=== PATIENT | male | born 1980 | race Caucasian/White ===

== ENCOUNTER 2017-01-21 23:33 | Emergency (ER) | payer OTHER ==
[2017-01-22 01:53] LABS: HEMOGLOBIN 12.8 gm/dl (14.0-17.5); RED BLOOD COUNT 4.28 M/UL (4.20-5.50); WHITE BLOOD COUNT 9.4 K/UL (4.5-11.0)
[2017-01-22 02:12] LABS: BUN/CREATININE RATIO 23 (0-10)
== END 2017-01-22 03:10 | disposition home or self-care (01) ==
LOC: ER1 23:33
PROVIDERS: Physician Assistant
DX: L02.415 Cutaneous abscess of right lower limb (principal); L03.115 Cellulitis of right lower limb; I80.299 Phlebitis and thrombophlebitis of other deep vessels of unspecified lower extremity; F19.90 Other psychoactive substance use, unspecified, uncomplicated
CPT/HCPCS: 36415; 73590; 80053; 85025; 87040; 96361; 96365; 99283; J0875; J7030

== ENCOUNTER 2017-01-22 21:54 | Inpatient (IN) | payer OTHER ==
[~2017-01-22] VITALS: Ht 175.3 cm; Wt 63.5 kg
[2017-01-23 01:21] LABS: HEMOGLOBIN 12.6 gm/dl (14.0-17.5); RED BLOOD COUNT 4.17 M/UL (4.20-5.50); WHITE BLOOD COUNT 12.2 K/UL (4.5-11.0)
[2017-01-23 01:33] LABS: BUN/CREATININE RATIO 19 (0-10)
[2017-01-24 05:52] LABS: HEMOGLOBIN 11.5 gm/dl (14.0-17.5); RED BLOOD COUNT 3.86 M/UL (4.20-5.50); WHITE BLOOD COUNT 7.9 K/UL (4.5-11.0)
[2017-01-24 06:06] LABS: BUN/CREATININE RATIO 14 (0-10)
[2017-01-25 04:16] LABS: HEMOGLOBIN 12.5 gm/dl (14.0-17.5); RED BLOOD COUNT 4.17 M/UL (4.20-5.50); WHITE BLOOD COUNT 6.8 K/UL (4.5-11.0)
[2017-01-25 04:41] LABS: BUN/CREATININE RATIO 13 (0-10)
[2017-01-26 06:55] LABS: BUN/CREATININE RATIO 32 (0-10)
[2017-01-26 06:59] LABS: HEMOGLOBIN 12.2 gm/dl (14.0-17.5); RED BLOOD COUNT 4.09 M/UL (4.20-5.50); WHITE BLOOD COUNT 6.1 K/UL (4.5-11.0)
[2017-01-27 07:22] LABS: BUN/CREATININE RATIO 32 (0-10)
[2017-01-27] MEDS ORDERED: BACTRIM DS TAB1 EACH PO (16:27)
[2017-01-27] MEDS ORDERED: TYLENOL 325MG325 MG PO (16:28)
== END 2017-01-27 17:29 | disposition home or self-care (01) | DRG 581 ==
LOC: ER1 21:54 → ZEROF 01-23 01:00 → M/S 01-23 01:00
PROVIDERS: Emergency Medicine; Student in an Organized Health Care Education/Training Program; ADMIT Internal Medicine
PROC: 0J9N0ZZ Drainage of Right Lower Leg Subcutaneous Tissue and Fascia, Open Approach (ICD-10-PCS; principal; 2017-01-24)
DX: L03.115 Cellulitis of right lower limb (principal); L02.415 Cutaneous abscess of right lower limb; F19.10 Other psychoactive substance abuse, uncomplicated; F17.210 Nicotine dependence, cigarettes, uncomplicated; R11.0 Nausea
CPT/HCPCS: 36415; 80048; 80053; 80202; 83605; 83735; 85025; 85610; 85730; 87040; 87070; 87205; 96374; 99284; J1335; J1650; J3370; J7050; J7070